=== PATIENT | female | born 1970 | race Caucasian/White ===

== ENCOUNTER 2018-02-20 11:25 | Observation (INO) | payer MEDICAID ==
[2018-02-20] MEDS ORDERED: ceFAZolin 2 GM/DEXTROSE 100 ML IV ONE (12:38)
[2018-02-20] MEDS ORDERED: LR 1,000 ML IV ONE (12:39)
--- NOTE | 2018-02-20 14:39 | PDHPUP ---
History & Physical Update H&P update statement: This history and physical update is based on an assessment of the patient which was completed after admission or registration (within 24 hours), but prior to the surgery/procedure. H&P update: H&P reviewed & patient examined, no change in patient's condition since H&P completed
[2018-02-20] MEDS ORDERED: THROMBIN (BOVINE) 20,000 UNIT SPRAY TP ONE (15:32)
[2018-02-20] MEDS ORDERED: BACITRACIN ZINC 14.2 GM OINTTUBE TP ONE (15:32)
[2018-02-20] MEDS ORDERED: GENTAMICIN SULFATE 80 MG/2 ML VIAL ONE (15:32)
[2018-02-20] MEDS ORDERED: ceFAZolin 1 GM/5 ML SYR ONE (15:33)
[2018-02-20] MEDS ORDERED: BACITRACIN 50,000 UNITS/10 ML SYR IRR ONE (15:33)
[2018-02-20] MEDS ORDERED: METHYLENE BLUE 0.5% 50 MG/10 ML AMP ONE (15:33)
[2018-02-20] MEDS ORDERED: oxyCODONE IR 5 MG TAB PO PRN (15:42)
[2018-02-20] MEDS ORDERED: PROMETHAZINE HCL 25 MG/ML INJ IVP PRN (15:42)
[2018-02-20] MEDS ORDERED: NALOXONE HCL 0.4 MG/ML INJ IVP PRN (15:42)
[2018-02-20] MEDS ORDERED: ONDANSETRON 4 MG/2 ML VIAL IVP PRN ×2 (15:42→17:02)
[2018-02-20] MEDS ORDERED: DEXAMETHASONE 4 MG/ML VIAL IVP PRN (15:42)
[2018-02-20] MEDS ORDERED: MIDAZOLAM 2 MG/2 ML VIAL IVP ONE (15:42)
[2018-02-20] MEDS ORDERED: ALBUTEROL 3 ML DEYVIAL IH PRN (15:42)
--- NOTE | 2018-02-20 15:42 | PDANEPAE ---
ANE History of Present Illness Bilateral Mastectomy ANE Past Medical History - Cardiovascular History Hx Hypertension: No Hx Arrhythmias: No Hx Chest Pain: No Hx Coronary Artery / Peripheral Vascular Disease: No Hx CHF / Valvular Disease: No Hx Palpitations: No - Pulmonary History Hx COPD: No Hx Asthma/Reactive Airway Disease: No Hx Recent Upper Respiratory Infection: No Hx Oxygen in Use at Home: No Hx Sleep Apnea: No Sleep Apnea Screening Result - Last Documented: Negative - Neurologic History Hx Cerebrovascular Accident: No Hx Seizures: No Hx Dementia: No - Endocrine History Hx Diabetes: No Endocrine History Comment: hypothyroidism - Renal History Hx Renal Disorders: No - Liver History Hx Hepatic Disorders: No - Neurological & Psychiatric Hx Hx Neurological and Psychiatric Disorders: No - Cancer History Hx Cancer: Yes Cancer History Comment: current breast - Congenital Disorder History Hx Congenital Disorders: No - GI History Hx Gastrointestinal Disorders: No - Other Health History Other Health History: none - Chronic Pain History Chronic Pain: No - Surgical History Prior Surgeries: n/a ANE Review of Systems Review of Systems: - Exercise capacity METS (RN): 4 METS ANE Patient History - Allergies Allergies/Adverse Reactions: Penicillins Allergy (Verified 02/14/18 10:20) Rash - Home Medications Home Medications: Levothyroxine [Synthroid 88 mcg (*)] 88 mcg PO DAILY06 02/07/18 [Last Taken Unknown] Multivitamins [Multivitamin (*)] 1 each PO DAILY 02/07/18 [Last Taken Unknown] - Smoking Hx Smoking Status: Never smoked - Family Anes Hx Family Hx Anesthesia Complications: none ANE Labs/Vital Signs - Vital Signs Blood Pressure: 112/68 Heart Rate: 82 Respiratory Rate: 16 O2 Sat (%): 97 Height: 180.34 cm Weight: 70.307 kg ANE Physical Exam - Airway Neck exam: FROM Mallampati Score: Class 2 Mouth exam: normal dental/mouth exam - Pulmonary Pulmonary: no respiratory distress, clear to auscultation - Cardiovascular Cardiovascular: regular rate and rhythym - ASA Status ASA Status: II ANE Anesthesia Plan Anesthesia Plan: GA w LMA
[2018-02-20] MEDS ORDERED: fentaNYL 100 MCG/2 ML INJ ONE ×2 (15:44→19:00)
[2018-02-20] MEDS ORDERED: LIDOCAINE 2% 5 ML SDV ONE (15:44)
[2018-02-20] MEDS ORDERED: PROPOFOL 200 MG/20 ML VIAL ONE (15:44)
[2018-02-20] MEDS ORDERED: DEXAMETHASONE 4 MG/ML VIAL ONE ×2 (16:12→16:13)
[2018-02-20] MEDS ORDERED: ONDANSETRON 4 MG/2 ML VIAL ONE (16:13)
[2018-02-20] MEDS ORDERED: RANITIDINE 50 MG/2 ML VIAL ONE (16:14)
[2018-02-20] MEDS ORDERED: HYDROmorphONE/DILAUDID 2 MG/ML INJ ONE ×2 (16:19→19:00)
--- NOTE | 2018-02-20 16:59 | POSTOPPROG ---
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 B SLN
[2018-02-20] MEDS ORDERED: ONDANSETRON DISINTEGRATING 4 MG TAB PO PRN (17:02)
[2018-02-20] MEDS ORDERED: diphenhydrAMINE 25 MG CAP PO PRN (17:02)
[2018-02-20] MEDS ORDERED: ROCURONIUM 50 MG/5 ML VIAL ONE ×2 (17:36→18:15)
[2018-02-20] MEDS ORDERED: SUGAMMADEX SODIUM 200 MG/2 ML VIAL IVP ONE (18:28)
--- NOTE | 2018-02-20 18:35 | POSTOPPROG ---
Post Op Note Date of Operation: 02/20/18 Surgeon: Shawn Villalobos Forklift Technician: Jez PATEL Anesthesia: GET(General Endotracheal) Pre-op Diagnosis: Right breast DCIS Post-op Diagnosis: Same Indication: DCIS Procedure: Bilateral tissue posting machine operator recon Findings: bilateral mastectomies Inf/Abcess present in the surg proc area at time of surgery?: No EBL: Minimal Total fluids administered: 800 Complications: none Drains: Ronen Khanna (x4)
--- NOTE | 2018-02-20 18:50 | POSTANESTH ---
Post Anesthetic Evaluation Cardiovascular Status: Normal, Stable Respiratory Status: Normal, Stable Level of Consciousness/Mental Status: Can Participate in Eval, Mildly Sleepy, Arousable Pain Control: Adequate, Prn Tx Ordered Nausea/Vomiting Control: Adequate, Prn Tx Ordered
[2018-02-20] MEDS: fentaNYL 100 MCG/2 ML INJ IVP PRN ×3 (19:02→19:22)
[2018-02-20] MEDS: HYDROmorphONE/DILAUDID 2 MG/ML INJ IVP PRN ×2 (19:04→19:14)
[2018-02-20] MEDS: HYDROCODONE/APAP 5/325 TAB PO PRN (20:27)
[2018-02-20] MEDS ORDERED: PROMETHAZINE HCL 25 MG/ML INJ IV PRN (21:25)
[2018-02-20] MEDS ORDERED: ceFAZolin 0.5 GM in NS 50 ML IV SCH (22:00)
[2018-02-20] MEDS: CYCLOBENZAPRINE 10 MG TAB PO PRN (23:12)
--- NOTE | 2018-02-21 00:06 | GOP ---
DATE OF OPERATION: 02/20/2018 SURGEON: Teresa Chan MD AMMONIA REFRIGERATION WORKER: BERTIN Villegas. ANESTHESIA: General. ANESTHESIOLOGIST: Bobby Mcwilliams DO. 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 PROCEDURE PERFORMED: Bilateral mastectomy, bilateral sentinel lymph nodes. FINDINGS: No unusual findings. SPECIMENS: Left breast short superior, long lateral left sentinel lymph node. Right breast short superior, long lateral right sentinel lymph node. ESTIMATED BLOOD LOSS: 25 cc. INDICATIONS: The patient is a 47-year-old woman with ductal carcinoma in situ. Genetic testing was performed. She also had a CHEK2 mutation. Bilateral mastectomy was indicated. DESCRIPTION OF PROCEDURE: Patient was brought into the operating room and placed supine on the table, and general anesthesia was administered. Her bilateral neck and breasts were prepped and draped in the usual sterile fashion. I made incision around the nipple areolar complex and created superior and inferior skin flaps. My dissection occurred to the clavicle, sternum, inframammary fold, and anterior axillary line. I dissected down to the pectoralis muscle and removed the breast from the fascia. It was marked short superior, long lateral. I then took a sentinel lymph node on this side. I used the gamma probe to identify the sentinel lymph node. It measured around 300. The background was quiet. This was submitted to Pathology. In a similar fashion, I performed a right mastectomy and right sentinel lymph node. On the right side, the sentinel lymph node measured around 500 and the background was quiet. Hemostasis was achieved. Dr. Villalobos was then able to complete his portion of the procedure. /[id number]/MODL MTDD
--- NOTE | 2018-02-21 02:02 | GOP ---
DATE OF OPERATION: 02/20/2018 SURGEON: Shawn Villalobos MD ANESTHESIA: General endotracheal. PREOPERATIVE DIAGNOSIS: POSTOPERATIVE DIAGNOSIS: PROCEDURE PERFORMED: Bilateral breast reconstruction with tissue expanders and AlloDerm. FINDINGS: SPECIMENS: None. ESTIMATED BLOOD LOSS: 20. INDICATIONS: Right breast DCIS. DESCRIPTION OF PROCEDURE: The patient was previously met my office where the risks and benefits were discussed with her at length which include but were not limited to infection, bleeding, hematoma, se shane, asymmetry, injury to the veneer glue spreader, poor cosmesis, and need for further revision surgery. She w as agreeable with this and therefore signed the operative consent. Prior to going to the operating r oom, she received 2 g of Ancef for perioperative prophylaxis. SCDs were placed for DVT prophylaxis, and no Guerrero catheter was placed for this case. Prior to going asleep, a time-out was performed wher e all in the room agreed upon the site and the procedure to be performed. The bilateral mastectomy p art will be dictated by my colleague, Dr. Teresa Chan. We began on the patient's left side, and jennie lar procedures were performed on each side. We began by identifying that the mastectomy flaps were b oth pink and viable, and any bleeding was cauterized with electrocautery. We found the lateral borde r of the pectoralis major muscle and lifted this up off the chest wall, creating a subpectoral pocket , coagulating any intercostal perforators with electrocautery. This was done medially as well as sup eriorly and releasing the inferior border of the pectoralis major muscles for completion of the subpe ctoral pocket. We then measured the base width, and this was deemed to be 12 cm. We therefore chose a 133MX-12-T 400 cc tissue veneer glue spreader for both sides. We then chose a 12 x 20, 2.2 mm thick piece of AlloDerm. This was cut and contoured to complete the subpectoral pocket. This was sewn into the inf ramammary fold as well as the lateral border of the chest wall with a 2-0 running Vicryl suture. The pocket was then washed out with copious amounts of triple antibiotic saline as well as sterile salin e. My secretary administrative assistant and I then changed our gloves. We then handled the expanders carefully, allowing on ly myself to touch the expanders and all the air was taken out in a closed sterile fashion. This was then placed within the subpectoral pocket. Correct orientation was confirmed, and the tabs were sut ured to the chest wall with 2-0 PDS sutures. The subpectoral pocket was then completely closed by ta melissa the superior border of the AlloDerm to the inferior border of the pectoralis major muscle with a running 2-0 Vicryl suture. Two drains were then placed, one along the IMF and one within the axilla , and this was sutured to the skin with 2-0 silk sutures. The skin was then temporarily closed with skin ivis, and this was then filled in a closed sterile fashion with sterile saline and methylene blue infused 200 cc on the left side. The skin was then closed with 3-0 Monocryl, subdermal sutures, and skin ivis. We then did the exact same procedure on the right side. Again, a 12 x 20 piece o f AlloDerm was cut and contoured and used for the subpectoral pocket. A 133MX-12-T veneer glue spreader was then used and put in the subpectoral pocket. Orientation was confirmed. Two drains were also placed on the right side. The skin was then also closed with 3-0 Monocryl and skin ivis. This was then pricilla led to 150 cc. Dressings were then placed with bacitracin Xeroform along the incisions and fluffs fo r compression and Mepilex Ag dressings along the drain sites. The tissue veneer glue spreader on the right side is 133MX-12-T. Initial fill was 150 out of 400. Serial number is [id number]. On the left side is 133 MX-12-T. Initial fill volume is 200 out of 400. Serial number is [id number]. There were no immediate complications. The count was correct at the end of the case. She was awoken and taken to PACU in g ood condition. IV FLUIDS: 1. Urine output was not recorded. RINK RAT: Jez Oconnor CST. COMPLICATIONS: None. INDICATIONS: The patient is a 47-year-old female with newly diagnosed right breast DCIS with a vanessa ic mutation. She has elected to undergo bilateral mastectomies with immediate reconstruction. /[id number]/MODL
[2018-02-21] MEDS: IBUPROFEN 600 MG TAB PO PRN ×3 (05:05→22:02)
[2018-02-21] MEDS: LEVOTHYROXINE 88 MCG TAB PO SCH (05:05)
[2018-02-21] MEDS: HYDROCODONE/APAP 5/325 TAB PO PRN ×5 (05:06→22:02)
[2018-02-21] MEDS: CYCLOBENZAPRINE 10 MG TAB PO PRN ×2 (07:59→18:51)
--- NOTE | 2018-02-21 08:46 | SOAPPROG ---
SOAP Progress Note Assessment/Plan: Assessment: s/p bilateral mastectomy with bilateral SLN biopsy and reconstruction performed on 02/20/18 for L DCIS with CHECK-2 mutation. O: She is doing well this morning, current pain level is rated at a 7-8/10. She took a Flexeril at 8am, due for Hilger at 9 am. Has had 4 doses of IV morphine overnight. Was nauseated last night, took a Phenergan which improved nausea. She is having some numbness in her right distal thumb. Also having some feeling of arm drop when she lowers her arm quickly. S: Sitting in bed comfortably with ice packs and pillow positioned over breasts. Pleasant and conversing. VSS RRR no m/r/g CTAB Incisions are clean, dry and intact. There are some areas of ecchymosis superior to the incisions on bilateral breasts. Surgibra and xeroform in place from surgery last night, dressings not changed this morning. VILLA drains with serosanguinous fluid 5/5 strength upper extremities both proximal and distal. Numbness over distal R thumb. Plan: Begin to wean off of IV morphine, attempt control of pain with PO flexeril and Hilger. If nausea persists, may give Phenergan or Zofran. PT/OT consult today while in hospital. If not discharged today, will start Lovenox for DVT prophylaxis. 02/21/18 08:45 02/21/18 08:47 02/21/18 08:55 02/21/18 09:26 Objective: Vital Signs Temp Pulse Resp BP Pulse Ox 36.9 C 74 14 108/57 L 98 02/21/18 07:28 02/21/18 07:28 02/21/18 07:28 02/21/18 07:28 02/21/18 07:28 02/20/18 02/21/18 02/22/18 05:59 05:59 05:59 Intake Total 290 Output Total 112 20 Balance 178 -20 ICD10 Worksheet Patient Problems: Problems Problem Status Onset CHEK2-related breast cancer Acute DCIS (ductal carcinoma in situ) Acute - ICD10 Problem Qualifiers (1) DCIS (ductal carcinoma in situ) Qualifiers: Laterality: left Qualified Code(s): D05.12 - Intraductal carcinoma in situ of left breast (2) CHEK2-related breast cancer
[2018-02-21] MEDS: ACETAMINOPHEN 325 MG TAB PO PRN ×2 (12:07→18:05)
--- NOTE | 2018-02-21 16:11 | ASMTCMCOM ---
CM Note CM Note Notes: Patient plan of care reviewed with surgeon. Likely to dc home tomorrow with no anticipated needs. Plan: Dc home no needs. Date Signed: 02/21/2018 04:10 PM Electronically Signed By:Kristin Cooper RN
[2018-02-22] MEDS: CYCLOBENZAPRINE 10 MG TAB PO PRN ×3 (00:09→11:14)
[2018-02-22] MEDS: HYDROCODONE/APAP 5/325 TAB PO PRN ×3 (01:54→11:14)
[2018-02-22] MEDS: LEVOTHYROXINE 88 MCG TAB PO SCH (06:12)
[2018-02-22] MEDS: IBUPROFEN 600 MG TAB PO PRN (06:13)
[2018-02-22 07:45] VITALS: BP 95/46
--- NOTE | 2018-02-22 08:56 | SOAPPROG ---
SOAP Progress Note Assessment/Plan: Assessment: s/p bilateral mastectomy with bilateral SLN biopsy and reconstruction performed on 02/20/18 for L DCIS with CHECK-2 mutation. O: She is doing well this morning, pain is better controlled with [place], Flexeril and Tylenol. The numbness in her right thumb persists, she was seen by acupuncture last night, massage to the forearm helped some. Arm is still feeling somewhat weak at times, but slowly improving. PT came by yesterday, but were not able to do much with the patient due to timing. Plan is for PT to see her again today. She is feeling some more fullness in the left breast compared to the right breast. Also concerned about some drainage from the insertion site of the right VILLA drains. Also concerned because she has not yet had a bowel movement s/p surgery. S: Sitting in bed comfortably. Pleasant and conversing. Some hypotension with BPs in the 90s/40-50s, otherwise VSS RRR CTAB Incisions are clean, dry and intact over bilateral breasts. SurgiBra and xeroform in place from surgery, dressings not changed this morning. VILLA drains with serosanguinous fluid. 5/5 strength upper extremities both proximal and distal. Mild numbness over distal R thumb. Plan: Continue to control pain with PO flexeril and [place], attempt to wean of narcotic medications and control pain with Tylenol and Ibuprofen. She has prescriptions for home medications. Nausea seems to be controlled at this point. If nausea persists, may give Phenergan or Zofran. Patient may take Colace or Senna for narcotic induced constipation. She has Senna at home. Discussed that she may take off the SurgiBra and wear a more comfortable alternative, such as a camisole as long as there is some pressure over the breasts. PT/OT consult today while in hospital. The left breast is likely feeling more full than the right breast because 200 cc fluid were injected into the left breast and 150 cc into the right breast. Plan is for patient to be discharged today. Follow up with Dr. Villalobos on Monday. Follow up with me in 2 weeks. Make appointment with medical oncology for 2-3 weeks. 02/21/18 08:45 02/21/18 08:47 02/21/18 08:55 02/21/18 09:26 02/22/18 08:47 Objective: Vital Signs Temp Pulse Resp BP Pulse Ox 36.9 C 67 16 95/46 L 97 02/22/18 07:43 02/22/18 07:43 02/22/18 07:43 02/22/18 07:43 02/22/18 07:43 02/21/18 02/22/18 02/23/18 05:59 05:59 05:59 Intake Total 290 600 Output Total 112 93 Balance 178 507 ICD10 Worksheet Patient Problems: Problems Problem Status Onset CHEK2-related breast cancer Acute DCIS (ductal carcinoma in situ) Acute - ICD10 Problem Qualifiers (1) DCIS (ductal carcinoma in situ) Qualifiers: Laterality: left Qualified Code(s): D05.12 - Intraductal carcinoma in situ of left breast (2) CHEK2-related breast cancer
--- NOTE | 2018-02-22 10:44 | ASDISCHSUM ---
Discharge Information Plan Status:Home with No Needs Medically Cleared to Leave:02/21/2018 Discharge Date:02/21/2018 CM D/C Disposition:Home, Routine, Self-Care ADT D/C Disposition:Home, Routine, Self-Care Projected Discharge Date:02/21/2018 Transportation at D/C: Discharge Delay Reason: Follow-Up Date:02/21/2018 Discharge Slot: Final Diagnosis: Placement Information Patient Contact Information Contact Name:AGUSTIN Relationship: Address:[address] City:[place] Alternate Phone: [facility]/Zip Code:[place] [address] Email: Financial Information Financial Class:Medicaid Primary Plan Desc:MEDICA[employer] HEALTH FIRST DATA REVIEW SPECIALIST Primary Plan Number:[id number] Secondary Plan Desc: Secondary Plan Number: Assessment Information [facility] CM Progress Note CM Note CM Note Notes: Patient plan of care reviewed with surgeon. Likely to dc home tomorrow with no anticipated needs. Plan: Dc home no needs. Date Signed: 02/21/2018 04:10 PM Electronically Signed By:Kristin Cooper RN Intervention Information
--- NOTE | 2018-02-22 10:44 | ASMTLACE ---
[facility] Length of stay for Answers: 1 day current admission Comorbidities - select Answers: Any tumor (including all that apply lymphoma or leukemia) # of Emergency department Answers: 0 visits in the last 6 months Score: 3 Date Signed: 02/22/2018 10:43 AM Electronically Signed By:Kristin Cooper RN
--- NOTE | 2018-02-22 10:46 | ASMTCMCOM ---
CM Note CM Note Notes: Patient has been medically cleared per surgical services for discharge to home. No needs identified. CM available should needs arise. Plan: DC independently with planned follow up outpatient. Date Signed: 02/22/2018 10:45 AM Electronically Signed By:Kristin Cooper RN
--- NOTE | 2018-02-23 19:24 | GDS ---
DISPOSITION: Discharged to home. 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 SECONDARY DIAGNOSES: 1. Right arm weakness. 2. Right thumb numbness. REASON FOR ADMISSION: The patient was admitted for bilateral mastectomy with bilateral sentinel lymp h node biopsy and reconstruction performed on 02/20/2018. HOSPITAL COURSE: She was admitted after the bilateral mastectomy and reconstruction on 02/20/2018. S he was provided with IV morphine for pain, fully weaned off IV morphine and started with [place], Flexe ril, and Tylenol for pain while in hospital. While in hospital, procedures performed included bilater al mastectomy with bilateral lymph node biopsy and reconstruction on 02/20/2018. CONDITION ON DISCHARGE: 1. She is ambulating well. 2. Pain is controlled. 3. Diet tolerated as normal. DISCHARGE INSTRUCTIONS: No new prescriptions were provided to the patient. She has Seaside at home. Sh nyla has senna at home. The patient is to follow up with Dr. Villalobos on Monday. Follow up with Dr. Hamlet Chan in 2 weeks. Follow up with Medical Oncology in 2-3 weeks. DICTATET BY: PIPPA Carvalho student; dictated for Teresa Chan MD. /[id number]/MODL
== END 2018-02-22 12:42 | disposition home or self-care (01) ==
LOC: F3E 11:25 → F1N 15:25
PROVIDERS: ADMIT Family Medicine; ATTEND Surgery
DX: D05.12 Intraductal carcinoma in situ of left breast (principal); R53.1 Weakness; R20.0 Anesthesia of skin; E03.9 Hypothyroidism, unspecified
CPT/HCPCS: 19304; 19357; 38500; 97116; 97161; A9520; G0378; J0690; J1100; J1170; J1580; J2250; J2270; J2405; J2550; J2704; J2780; J3010; Q4116; Q9968